=== PATIENT | female | born 1995 | race Caucasian/White ===

== ENCOUNTER 2017-02-10 07:12 | Day surgery (SDC) | payer OTHER ==
[2017-02-09 09:59] VITALS: BMI 24.7
[~2017-02-10] VITALS: Ht 157.5 cm; Wt 61.0 kg
[2017-02-10] VITALS (13 sets, daily range): BP systolic 101–133; BP diastolic 57–75; PULSE 18–126; RESP 16–24; Ht 157.5 cm; Wt 61.0 kg
[~2017-02-10 07:12] MED LIST: ACETAMINOPHEN 1000 MG/100 ML IVPB ONE; CEFAZOLIN 1 GM INJ ONE; CEFAZOLIN 2 GM/50 ML (PMX) 50 ML IVPB ONE; SOD CHLORIDE 0.9% 1,000 ML IV SCH
[2017-02-10] MEDS ORDERED: PROPOFOL 20 ML ONE (08:16)
[2017-02-10] MEDS ORDERED: MIDAZOLAM 1 MG/ML 2 ML INJ ONE (08:16)
[2017-02-10] MEDS ORDERED: FENTAnyl 50 MCG/ML VIAL ONE (08:16)
[2017-02-10 08:28] LABS: BASOPHILS % 0.4 % (0.0-2.0); EOSINOPHILS # 0.1 10^3/ul (0.0-0.5); EOSINOPHILS % 0.8 % (0.0-7.0); HEMOGLOBIN 12.9 g/dl (12.0-16.0); LYMPHOCYTES # 3.3 10^3/ul (0.8-2.9); LYMPHOCYTES % 39.7 % (18.0-55.0); MEAN CORPUSCULAR HEMOGLOBIN 27.9 pg (29.0-33.0); MEAN CORPUSCULAR HGB CONC 32.3 g/dl (32.0-37.0); MEAN CORPUSCULAR VOLUME 86.6 fl (72.0-104.0); MEAN PLATELET VOLUME 10.4 fl (7.4-10.4); MONOCYTE # 0.5 10^3/ul (0.3-0.9); MONOCYTES % 6.4 % (0.0-13.0); NEUTROPHIL # 4.4 10^3/ul (1.6-7.5); NEUTROPHILS % 52.5 % (30.0-74.0); PLATELET COUNT 299 10^3/UL (140-415); RED BLOOD COUNT 4.62 10^6/ul (4.20-5.40); RED CELL DISTRIBUTION WIDTH 12.3 % (11.5-14.5); WHITE BLOOD COUNT 8.3 10^3/ul (4.8-10.8)
[2017-02-10 08:39] LABS: INR 1.09; PROTIME 14.1 Sec (12.2-14.2); PT RATIO 1.1
[2017-02-10 08:44] LABS: ALBUMIN 4.6 g/dl (3.3-4.9); ALBUMIN/GLOBULIN RATIO 1.21; BILIRUBIN,INDIRECT 0.3 mg/dl (0-1.1); BILIRUBIN,TOTAL 0.3 mg/dl (0.2-1.3); TOTAL PROTEIN 8.4 g/dl (6.1-8.1)
[2017-02-10 08:47] LABS: PARTIAL THROMBOPLASTIN TIME 32.8 Sec (25.0-35.0)
[2017-02-10 08:49] LABS: CALCIUM 9.9 mg/dl (8.4-10.2); CREATININE 0.68 mg/dl (0.44-1.00); POTASSIUM 3.9 mmol/L (3.5-5.1)
[2017-02-10] MEDS ORDERED: MEPERIDINE 25 MG INJ IV PRN (09:00)
[2017-02-10] MEDS ORDERED: FENTAnyl 50 MCG/ML VIAL IV PRN ×2 (09:00)
[2017-02-10] MEDS ORDERED: ONDANSETRON 4 MG INJ IV PRN (09:00)
[2017-02-10] MEDS ORDERED: morphine (1 MG/ML) 10ML SYRINGE IV PRN ×2 (09:00)
[2017-02-10] MEDS ORDERED: MIDAZOLAM 1 MG/ML 2 ML INJ IV PRN (09:00)
[2017-02-10] MEDS ORDERED: DEXAMETHASONE 4 MG/ML 1 ML INJ ONE (09:40)
[2017-02-10] MEDS ORDERED: FAMOTIDINE 20 MG INJ ONE (09:40)
[2017-02-10] MEDS ORDERED: ONDANSETRON 4 MG INJ ONE (09:40)
[2017-02-10] MEDS ORDERED: KETOROLAC 30 MG INJ ONE (10:00)
[2017-02-10] MEDS ORDERED: EPHEDrine SULFATE 50 MG/5 ML SYG ONE (10:00)
--- NOTE | 2017-02-10 10:11 | SIPON ---
Date/Time of Note Date/Time of Note DATE: 02/10/17 TIME: 10:09 Operative Report Preoperative Diagnosis Left breast mass Postoperative Diagnosis Same Operation/Procedure Performed Excision of left breast mass Surgeon see signature line tourist information assistant Dr Jackson Anesthesia: general Estimated blood loss: 0 - 10 ml's Transfusion Required none Specimen Left breast specimen Grafts/Implants none Complications none COLT PALENCIA MD Feb 10, 2017 10:11
[2017-02-10] MEDS ORDERED: HYDROCODONE/APAP (7.5/325) TAB PO PRN (10:30)
--- NOTE | 2017-02-10 11:11 | OPR ---
DATE OF OPERATION: PREOPERATIVE DIAGNOSIS: Left breast mass. POSTOPERATIVE DIAGNOSIS: Left breast mass. OPERATION PERFORMED: Excision of left breast mass. ANESTHESIA: General. ANESTHESIOLOGIST: Dr. Edison Moncada. SURGEON: Dr. Cordova. CISTERN ROOM WORKING SUPERVISOR: Dr. Jackson. 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 She was counseled as to the risks versus benefits of excision. She consented and was scheduled for surgery. DESCRIPTION OF PROCEDURE: The patient was brought to the operating theater, placed under general an esthesia. The left breast was prepped and draped in usual sterile fashion. Approximately 2 to 3 cm incision was made directly over the palpable mass with 15 blade scalpel. Subcutaneous tissue was d issected with cautery down through the breast parenchyma, a well-circumscribed mass was identified. It was enucleated with a gloved finger, removed, and sent for permanent pathologic analysis. The w ound was irrigated. Minimal bleeding was controlled with cautery, and the skin was then reapproxima steve with a 5-0 PDS suture in subcuticular fashion. Benzoin and Steri-Strips were then applied. Pat ient tolerated procedure well. Estimated blood loss was 10 mL. There were no complications and the patient was transported in stable condition to the recovery room. Dictated By: COLT VILLALTA/MATT Conf#: [id number] [facility]#: [id number]
== END 2017-02-10 11:44 | disposition home or self-care (01) ==
LOC: SDS 07:12
PROVIDERS: ATTEND Surgery Surgical Oncology
DX: D24.2 Benign neoplasm of left breast (principal)
CPT/HCPCS: 19120; 80053; 84703; 85025; 85610; 85730; 88307; J0131; J0690; J1100; J1885; J2250; J2405; J3010; Z7512; Z7610